=== PATIENT | female | born 1970 | race American Indian/Alaskan Native ===

== ENCOUNTER 2017-05-13 13:56 | Outpatient (CLI) | payer OTHER ==
--- NOTE | 2017-05-13 15:51 | Mammography Report ---
BILATERAL DIGITAL SCREENING MAMMOGRAM with CAD: 05/13/17 13:56:00 CLINICAL: Routine screening. COMPARISON:05/30/16 right mammogram. FINDINGS: The breasts are heterogeneously dense, which may obscure small masses. No mass, architectural distortion or suspicious calcifications. IMPRESSION: No mammographic evidence of malignancy. BI-RADS CATEGORY: 1 - - Negative RECOMMENDATION: Routine mammographic screening in one year. COMMENT: Patient follow-up letters are generated by our [employer] application.
--- NOTE | 2017-05-13 15:53 | Ultrasound Report ---
ULTRASOUND RIGHT AXILLA: 05/13/17 13:56:00 CLINICAL: Right axillary mass. COMPARISON: None. FINDINGS: Ultrasound of the right axilla demonstrated normal fat with no distinct measurable mass.Several lymph nodes with benign morphology. No lymphadenopathy. IMPRESSION: Benign fat of the right axilla. Recommend clinical followup.
== END 2017-05-13 13:57 | disposition home or self-care (01) ==
LOC: SPVWC 13:56
PROVIDERS: ATTEND Obstetrics & Gynecology
DX: Z12.31 Encounter for screening mammogram for malignant neoplasm of breast (principal); Q83.1 Accessory breast
CPT/HCPCS: 76642; G0202; 77067

== ENCOUNTER 2017-12-17 06:06 | Observation (INO) | payer OTHER ==
--- NOTE | 2017-12-12 10:50 | Anesthesia Consultation ---
Anesthesia Consult and Med Hx Date of service: 12/12/17 - Airway Anesthetic Teeth Evaluation: Good ROM Head & Neck: Adequate Mental/Hyoid Distance: Adequate Mallampati Class: Class I Intubation Access Assessment: Good - Pulmonary Exam CTA: Yes - Cardiac Exam Cardiac Exam: RRR - Pre-Operative Health Status ASA Pre-Surgery Classification: ASA1 Proposed Anesthetic Plan: General Nerve Block: TAP - Central Nervous System Hx Psychiatric Problems: No - Hematic Hx Sickle Cell Disease: Yes (Trait only) - Other Systems Hx Cancer: No
[2017-12-12 10:58] LABS: Basophils % (Auto) 0.5 % (0.0-1.8); Eosinophils # (Auto) 0.1 K/mm3 (0.0-0.4); Eosinophils % (Auto) 1.4 % (0.0-4.3); Hematocrit 37.6 % (30.3-42.9); Hemoglobin 12.4 gm/dl (10.1-14.3); Lymphocytes # (Auto) 2.9 K/mm3 (1.2-5.4); Mean Corpuscular HGB Conc 33 % (30-34); Mean Corpuscular Volume 76 fl (79-97); Monocytes # (Auto) 0.6 K/mm3 (0.0-0.8); Monocytes % (Auto) 7.8 % (0.0-7.3); Platelet Count 269 K/mm3 (140-440); Red Blood Count 4.97 M/mm3 (3.65-5.03); Red Cell Distribution Width 14.9 % (13.2-15.2)
[2017-12-12 11:09] LABS: Mean Corpuscular Hemoglobin 25 pg (28-32)
--- NOTE | 2017-12-16 17:45 | History and Physical Report ---
History of Present Illness Date of examination: 12/12/17 Chief complaint: Excessive and frequent menstruation with irregular cycle; Fibroids of uterus; Intramura History of present illness: Past History : 2 Term Births: 2 Living Children: 2 Para: 2 # 1 Delivery type: # 2 Delivery type: APPLICATIONS DEVELOPMENT ANALYST History Operations: Laproscopic Dx for endometriosis Tonsillectomy Laparoscopic salpingectomy (07/22/2012)(B) Laparoscopic/Laparotomy Lysis of adhesions (07/22/2012) Laparoscopy, ovarian biopsy right (07/22/2012) Abnormal PAP: positive Uterine Anomaly: positive fibroids Infection History HIV Risk Eval: no TB exposure: no Personal hx. of genital herpes: yes Partner hx. of genital herpes: no Rash/viral illness since LMP: no Hx of STD: HSV Other: HSV no treatment given per pt Wants retest Active Medications (reviewed today): IBUPROFEN 800 MG ORAL TABLET (IBUPROFEN) 1 po TID (PRN) OXYCODONE-ACETAMINOPHEN 5-325 MG ORAL TABLET (OXYCODONE-ACETAMINOPHEN) 1-2po q6h FLONASE 50 MCG/ACT NASAL SUSPENSION (FLUTICASONE PROPIONATE) 2 sprays, each nostril x1 qd OMEPRAZOLE TABLET DELAYED RELEASE (OMEPRAZOLE TBEC) MEGARED OMEGA-3 KRILL OIL CAPSULE (KRILL OIL CAPS) VITAMIN D 1000 UNIT ORAL TABLET (CHOLECALCIFEROL) Current Allergies (reviewed today): SULFA (Critical) Past Medical History: Reviewed history from 04/29/2017 and no changes required: Hyperlipidemia--no meds at present, OTC Fish oil GERD endometrisosis colon polyp 2014 benign historyof abnml EKG's cardiac evaluations are normal Past Surgical History: Reviewed history from 06/10/2017 and no changes required: Laproscopic Dx for endometriosis Tonsillectomy Laparoscopic salpingectomy (07/22/2012)(B) Laparoscopic/Laparotomy Lysis of adhesions (07/22/2012) Laparoscopy, ovarian biopsy right (07/22/2012) Family History Summary: Reviewed history Last on 04/18/2015 and no changes required:12/16/2017 Other family member - Has No Family History of Biliary Tract Cancer - Entered On : 05/17/2017 Other family member - Has No Family History of Breast Cancer - Entered On: 2016 Other family member - Has No Family History of Brain Cancer - Entered On: 2016 Other family member - Has No Family History of Colon Cancer - Entered On: 2016 Other family member - Has No Family History of DVT/PE on OCP - Entered On: 2016 Other family member - Has No Family History of Kidney/Urinary Tract Cancer - Entered On: 05/17/2017 Other family member - Has No Family History of Ovarvian Cancer - Entered On: Other family member - Has No Family History of Pancreatic Cancer - Entered On: Other family member - Has No Family History of Stomach Cancer - Entered On: 05/17 Other family member - Has No Family History of Small Bowel Cancer - Entered On: 05/17/2017 Other family member - Has No Family History of Uterine Cancer - Entered On: 05/17 General Comments - FH: No Family History of Breast Cancer No Family History of Colon Cancer No Family History of Ovarvian Cancer No Family History of DVT/PE on OCP Social History: Reviewed history from 04/29/2017 and no changes required: Patient is still . sex is comfortable Smoking History: Patient has never smoked. Risk Factors: Mammogram History: Date of Last Mammogram: 05/13/2017 PAP Smear History: Date of Last PAP Smear: 04/29/2017 Previous Tobacco Use: Signed On 06/12/2017 Smoked Tobacco Use: Never smoker Smokeless Tobacco Use: Never Passive smoke exposure: no Drug use: no HIV high-risk behavior: no Caffeine use: 0 drinks per day Previous Alcohol Use: Signed On - 06/12/2017 Alcohol use: no Exercise: no Seatbelt use: 100 % Colonoscopy History: Date of Last Colonoscopy: 02/15/2015 Mammogram History: Date of Last Mammogram: 05/13/2017 PAP Smear History: Date of Last PAP Smear: 04/29/2017 Review of Systems General Denies fever, chills, sweats, anorexia, fatigue, weakness, malaise, weight loss and sleep disorder. Complains of menorrhagia and abnormal vaginal bleeding. Denies vaginal discharge, incontinence, dysuria, hematuria, urinary frequency, amenorrhea, pelvic pain, genital sores, decreased libido, painful periods, painful sex, urinary urgency, hot flashes, vaginal dryness, vaginal itching and vaginal odor. CV Denies chest pains, palpitations, syncope, dyspnea on exertion, orthopnea, PND and peripheral edema. Resp Denies cough, dyspnea at rest, excessive sputum, hemoptysis, wheezing and pleurisy. GI Denies nausea, vomiting, diarrhea, constipation, change in bowel habits, abdominal pain, melena, hematochezia, jaundice, gas/bloating, indigestion/ heartburn, dysphagia and odynophagia. Endo Denies cold intolerance, heat intolerance, polydipsia, polyphagia, polyuria and unusual weight change. Breast Denies left breast lump, right breast lump, nipple discharge, bloody discharge from nipple, breast pain, abnormal mammogram and breast enlargement. MS Denies back pain, joint pain, joint swelling, muscle cramps, muscle weakness, stiffness, arthritis, sciatica, restless legs, leg pain at night and leg pain with exertion. Derm Denies rash, itching, dryness and suspicious lesions. Neuro Denies paralysis, paresthesias, headache, seizures, tremors, vertigo, transient blindness, frequent falls, frequent headaches and difficulty walking. Psych Denies depression, anxiety, irritability and mood swings. Eyes Denies blurring, diplopia, irritation, discharge, vision loss, eye pain and photophobia. ENT Denies earache, ear discharge, tinnitus, decreased hearing, nasal congestion, nosebleeds, sore throat and hoarseness. Allergy Denies urticaria, allergic rash, hay fever and recurrent infections. Heme Denies abnormal bruising, bleeding and enlarged lymph nodes. Physical Exam Appearance: well developed, well nourished, no acute distress Other Exams Lungs: no rales, rhonchi, or wheezes Heart: S1, S2, no murmur, rub, or gallop Abdomen: soft, non-tender, no masses, Genitourinary Exam Vulva: normal, no lesions or discharge Urethral meatus: normal size and location, no lesions or discharge Urethra: no discharge Vagina: no abnormalities Cervix: no abnormalities seen Uterus: fixed Adnexa: no masses or tenderness Impression & Recommendations: Problem # 1: Excessive and frequent menstruation with irregular cycle (ICD- 626.6) (EKO25-L71.1) Probably due to Mirena. Diagnosis explained to patient . Questions answered. Discussed with patient various medical and surgical therapies common for treatment: Hormonal/medical therapy,endometrial ablation or hysterectomy. She desires to proceed with hysterectomy Her updated medication list for this problem includes: Ibuprofen 800 Mg Oral Tablet (Ibuprofen) ..... 1 po tid (prn) Vitamin D 1000 Unit Oral Tablet (Cholecalciferol) [id number] Consent reviewed and signed . Possible laparoscopy or laparotomy explained to patient. The risks and alternatives for this surgery were reviewed with the patient. She was informed of possible bleeding, infection, injury to bowel, bladder, ureters or other adjacent organs. She was informed she will not be able to get once her uterus has been removed. She desires ovarian conservation. She was informed she may require surgery later to have her ovaries removed for a benign or mailgnant condition The patient was instructed/informed the following: The normal length of hospital stay for this procedure. Nothing to eat or drink after midnight the evening prior to surgery. Clear liquids the day before surgery. Fleets enema the day prior to surgery. Pre-op instruction sheets given. Wound care instructions given. Infection precautions reviewed, patient to call for any signs or symptoms of infection. The usual discomforts associated with this procedure were detailed. Proper use of pain medicines was reviewed. Patient was given ample opportunity to have all her questions answered before signing informed consent. H&P dictated. Problem # 2: Fibroids of uterus; Intramural (ICD-218.1) ([id number]-Q89.1) Diagnosis explained to patient . Questions answered. Discussed with patient various medical, surgical and radioloigal therapies common for treatment: Hormonal/medical therapy, fibroid embolization, removal of fibroids or hysterectomy Her updated medication list for this problem includes: Ibuprofen 800 Mg Oral Tablet (Ibuprofen) ..... 1 po tid (prn) Oxycodone-acetaminophen 5-325 Mg Oral Tablet (Oxycodone-acetaminophen) ..... 1-2po q6h [place]-3 Krill Oil Capsule (Krill oil caps) Orders: [facility] Est [id number] ([id number]) Medications Added to Medication List This Visit: 1) Ibuprofen 800 Mg Oral Tablet (Ibuprofen) .... 1 po tid (prn) 2) Oxycodone-acetaminophen 5-325 Mg Oral Tablet (Oxycodone-acetaminophen) .... 1-2po q6h 3) Flonase 50 Mcg/act Nasal Suspension (Fluticasone propionate) .... 2 sprays, each nostril x1 qd Patient Instructions: 1) Discontinue ibuprofen and herbal supplements immediately Prescriptions: OXYCODONE-ACETAMINOPHEN 5-325 MG ORAL TABLET (OXYCODONE-ACETAMINOPHEN) 1-2po q6h #30 Tablet x 0 Entered and Authorized by: Dulce Chery MD Method used: Print then Give to Patient RxID: [id number] IBUPROFEN 800 MG ORAL TABLET (IBUPROFEN) 1 po TID (PRN) #30 x 1 Entered and Authorized by: Dulce Chery MD Method used: Print then Give to Patient RxID: [id number] IBUPROFEN 800 MG ORAL TABLET (IBUPROFEN) 1 po TID (PRN) #30 x 1 Entered and Authorized by: Dulce Chery MD Method used: Print then Give to Patient RxID: [id number] OXYCODONE-ACETAMINOPHEN 5-325 MG ORAL TABLET (OXYCODONE-ACETAMINOPHEN) 1-2po q6h #30 Tablet x 0 Entered and Authorized by: Dulce Chery MD Method used: Print then Give to Patient RxID: [id number] Medications and Allergies Allergies Allergy/AdvReac Type Severity Reaction Status Date / Time Sulfa (Sulfonamide Allergy Itching Verified 12/09/17 15:23 Antibiotics) Home Medications Medication Instructions Recorded Confirmed Last Taken Type Acetaminophen [Tylenol Extra 500 mg PO PRN PRN 12/09/17 12/09/17 Unknown History Strength] Multivitamin [Multiple Vitamins] 1 each PO DAILY 12/09/17 12/09/17 Unknown History Active Meds: Active Medications Lactated Ringer's (Lactated Ringers) 1,000 mls @ 100 mls/hr IV DIRECT VIJAYA Cefazolin Sodium (Ancef/Sterile Water 2 Gm/20 Ml) 2 gm in 20 mls @ 80 mls/hr IV PREOP NR PRN Reason: Protocol Exam Vital Signs Temp Pulse Resp BP 98.1 F 68 16 128/80 12/12/17 10:20 12/12/17 10:20 12/12/17 10:20 12/12/17 10:20 Results - Labs 12/12/17 10:30 Assessment and Plan - Patient Problems (1) Excessive and frequent menstruation with irregular cycle Status: Acute (2) Fibroid Status: Acute Qualifiers: Uterine leiomyoma location: unspecified location Qualified Code(s): D25.9 - Leiomyoma of uterus, unspecified
[~2017-12-17 06:06] MED LIST: ANCEF/STERILE WATER 2 GM/20 ML 2 GM/20 ML SYRINGE IV NR; LACTATED RINGERS 1,000 ML IV SCH; VERSED IV NR
[2017-12-17] MEDS ORDERED: NACL BACTERIOSTATIC INFILTRATI ONE (06:33)
[2017-12-17] MEDS ORDERED: NEOSPORIN GU IR ONE ×2 (07:31→09:21)
--- NOTE | 2017-12-17 07:32 | Anesthesia Day of Surgery ---
Anesthesia Day of Surgery - Day of Surgery Patient Examined: Yes Patient H&P Reviewed: Yes Patient is NPO: Yes
[2017-12-17] MEDS ORDERED: MARCAINE 0.25% INFILTRATI ONE (07:33)
[2017-12-17] MEDS ORDERED: DECADRON ONE ×2 (07:33→09:28)
[2017-12-17] MEDS ORDERED: CLONIDINE 1,000 MCG/10 ML VIAL EP ONE (07:33)
[2017-12-17] MEDS ORDERED: XYLOCAINE 1% 20 mL ONE (07:33)
[2017-12-17] MEDS ORDERED: DILAUDID ONE (07:36)
[2017-12-17] MEDS ORDERED: ZEMURON IV ONE (07:36)
[2017-12-17] MEDS ORDERED: XYLOCAINE MPF 2% ONE (07:36)
[2017-12-17] MEDS ORDERED: DIPRIVAN 10 MG/ML IV ONE (07:36)
[2017-12-17] MEDS ORDERED: NEURONTIN PO NR (08:00)
[2017-12-17] MEDS ORDERED: SUBLIMAZE IV NR (08:00)
[2017-12-17] MEDS ORDERED: VERSED IV NR (08:00)
[2017-12-17] MEDS ORDERED: PEPCID PO NR (08:00)
[2017-12-17] MEDS ORDERED: ZOFRAN IV PRN ×2 (08:26→18:38)
[2017-12-17] MEDS ORDERED: NACL 0.9% IR ONE (09:21)
[2017-12-17] MEDS ORDERED: NEO SYNEPHRINE/NS Syringe(OR USE) IV ONE (09:26)
[2017-12-17] MEDS ORDERED: ZOFRAN ONE (09:28)
[2017-12-17] MEDS ORDERED: METHYLENE BLUE ONE (09:41)
[2017-12-17] MEDS ORDERED: LACTATED RINGERS 1,000 ML ONE (09:51)
[2017-12-17] MEDS ORDERED: METHYLENE BLUE IV ONE (10:00)
[2017-12-17] MEDS ORDERED: TORADOL ONE (10:35)
[2017-12-17] MEDS ORDERED: ROBINUL ONE (10:36)
[2017-12-17] MEDS ORDERED: NEOSTIGMINE ONE (10:36)
[2017-12-17] MEDS: DILAUDID IV PRN ×3 (11:25→11:50)
[2017-12-17] MEDS ORDERED: REGLAN PO PRN (12:55)
[2017-12-17] MEDS ORDERED: NACL 0.9% 1000 ML 1,000 ML IV SCH (12:55)
[2017-12-17] MEDS ORDERED: PERCOCET 5/325 PO PRN (12:55)
[2017-12-17] MEDS ORDERED: ANCEF/NS 1 GM/50 ML 1 GM/50 ML BAG IV SCH ×2 (12:55→16:30)
[2017-12-17] MEDS ORDERED: MORPHINE IV PRN ×2 (12:55→13:30)
[2017-12-17] MEDS ORDERED: TYLENOL PR PRN (13:00)
[2017-12-17] MEDS ORDERED: TYLENOL PO PRN (13:00)
--- NOTE | 2017-12-17 13:24 | Operative Report ---
Operative Report Operative Report: Date: 12/17/2017 Preoperative diagnosis: 1. Excessive and frequent menstruation with irregular cycle 2. Fibroids of uterus; Intramural Postoperative diagnosis: 1. Excessive and frequent menstruation with irregular cycle 2. Fibroids of uterus; Intramural 3. Pelvic adhesions 4. Right adnexal cyst Procedure: 1. Robotic-assisted laparoscopic total hysterectomy 2. Removal of Mirena IUD 3. Lysis of pelvic adhesions 4. Excision of right adnexal cyst Surgeon: Dulce Chery MD Electronic Scale Assembler And Tester: Melisa Powell M.D. Anesthesiologist: Beryn Valles M.D. Anesthesia: General endotracheal anesthesia EBL: Approximately 50 mL Findings: Exam under anesthesia revealed the uterus to be approximately 14 weeks and fixed. Uterus was sounded to approximately 11 cm. Uterine fibroids. Filmy posterior uterine adhesions to the sigmoid colon. Right adnexal cysts with brownish fluid consistent with endometriosis. Adhesion of the left ovary to the pelvic sidewall and posterior uterus. The patient had a previous salpingectomy therefore no tubes were present for removal. Procedure: Patient was taken to the OR and placed in the supine position. General anesthesia was induced and an oral gastric tube was placed. Her neck and head were placed on foam support. Foam eye protection with goggles were secured in place. Then foam face protection was placed and secured. Foam shoulder pads were then positioned on her shoulders for Trendelenburg positioning. She was then placed in dorsolithotomy position. Exam under anesthesia see above. The abdomen and vagina were then prepped and draped in the usual sterile fashion. Timeout was performed. A Davis catheter was inserted into the bladder with drainage of clear yellow urine. The operative speculum was introduced into the vagina and the anterior lip of the cervix was grasped with single-toothed tenaculum. The uterus was sounded to 11 cm. The cervix was progressively dilated to allow the large V care uterine manipulator. The bulb of the manipulator was inflated and the speculum and tenaculum were removed. The cup of the manipulator was placed around the cervix and the blue occluder of the manipulator was properly positioned in the vagina. A laparotomy sponge that was saturated with a solution of polymyxin and saline was placed in the vagina to ensure pneumoperitoneum. Sterile gloves were placed and attention was turned to the abdomen. A 10 mm vertical supraumbilical incision was made approximately 10 cm superior to the elevated fundus of the uterus. A 12 mm trocar with the laparoscope and camera attached was introduced through this incision under direct visualization. The abdomen was insufflated. No obvious bowel, bladder, ureteral, or major vascular injury was noted. The patient was then placed in steep Trendelenburg position and the following trochars were placed under direct visualization: 8 mm robotic trochars were placed through incisions made in the bilateral midclavicular lower abdominal region approximately 10 cm lateral and approximately 2 cm below the midline incision, and a 5 mm trocar was placed through an incision made in the right lower lateral pelvis approximately 2 cm superior to the iliac crest. The 10 mm laparoscope was then replaced by a 5 mm laparoscope that was placed through the 5 millimeter lateral trocar. The 12 mm trocar was then removed in the Richard Nina fascial closure device was placed through the incision and a 0 Vicryl was placed through the fascia. Once the suture was secured the 12 mm trocar was reintroduced. Once the trochars were in the appropriate positions, the [place] robot system was engaged. The EndoShears and bipolar device was placed through the 8 mm trochars and positioned then attention was turned to the console. The uterus was elevated and bilateral salpingectomy was performed. Then the right utero-ovarian ligament was clamped. cauterized and incised bilaterally using 30 W of energy. The adnexal cyst was noted anterior to the right ovary. Cyst was excised and removed through the 5 mm trocar. Then the right round ligament was clamped, cauterized and incised bilaterally. The anterior leaf of the broad ligament was elevated and careful blunt and sharp dissection the bladder flap was created and dissected away from the lower uterine segment and cervix. The posterior leaf of the broad ligament was dissected away from the uterine vessels. Then attention was turned to the left adnexa. Due to the scarring of the uterus to the pelvic sidewall as well as to the posterior aspect of the uterus the round ligament was clamped cauterized and sized. Then anteriorly the broad ligament was elevated and with both blunt and sharp dissection the bladder flap was completed. Then attention was turned to the posterior aspect of the uterus on the left wall with careful blunt and sharp dissection the ovary was released from the uterus. The ovary was attached down through the broad ligament to the uterine vessels. With careful dissection the ovary was released from the uterine vessels and the vessels were clamped and cauterized. The cup of the uterine manipulator was palpated both anteriorly and posteriorly. Course of the right ureter was visualized and was confirmed to be away from the operative field. The left ureter was unable to be visualized due to the attachment of the ovary to the pelvic sidewall. The uterine vessels were then clamped and cauterized bilaterally. Blanching of the uterus was then noted. Attention was again turned to the anterior lower uterine segment and the bladder was confirmed to be away from the operative field. Then attention was turned again to the posterior where the cup of the manipulator was palpated and a colpotomy was performed down to the cup. The incision was extended in the lateral position the uterine vessels that were again clamped and cauterized and incised. Continuing along the cup of the manipulator in a circumferential manner the colpotomy was completed. The uterus and cervix were then removed through the vaginal incision. The pelvis was irrigated with warm normal saline. A moist laparotomy sponge was placed in the vagina to maintain pneumoperitoneum. The vagina cuff was reapproximated using V LOC 180 suture in a simple running stitch. Then a J stitch was performed to secure the suture. Again the pelvis was copiously irrigated with polymixin in warm normal saline. The laparotomy sponge was removed from the vagina. No bowel, bladder, ureteral or major vascular injury was noted. The gas was released from the abdomen under direct visualization to ensure hemostasis. No bleeding was noted. Because the left ureter was unable to be visualized patient was given Methergine IV to ensure no ureteral injury. At the end of the procedure there was no drainage of dye into the abdominal cavity however there was drainage into the Davis catheter and no blood was noted in the Davis catheter or Davis bag. Once hemostasis was noted, Garfield was applied to the operative field to ensure hemostasis. Then Interceed was applied to the operative field to decrease formation of adhesions. Again hemostasis was noted. Grossly normal appendix was noted. Then the instruments were removed, the robot was disengaged. The 12 mm trocar was removed and the fascia was ligated with the 0 Vicryl suture that was placed at the beginning of the procedure. The patient was taken out of Trendelenburg position, the abdomen was desufflated, the remaining trochars were removed. Incisions were reapproximated using 4-0 Vicryl in a subcuticular manner. Incisions were infused with half percent Marcaine without epinephrine and Surgiseal was placed over the incisions. The vagina was then inspected, no bleeding was noted and clear yellow urine was draining into the Davis bag from the bladder at the end of the procedure. Patient was taken to recovery room in stable condition.
[2017-12-17] MEDS ORDERED: REGLAN IV PRN (13:30)
--- NOTE | 2017-12-17 13:53 | Post Anesthesia Evaluation ---
- Post Anesthesia Evaluation Patient Participated: Yes Airway Patent: Yes Stable Respiratory Function: Yes Nausea/Vomiting: No Temp > 96.8F: Yes Pain Manageable: Yes Adequeate Hydration: Yes Anesthesia Complications: No Block Receding Appropriately: Not Applicable Patient on Ventilator: No
[2017-12-17] MEDS: ceFAZolin 1 GM in NACL 0.9% 20 ML IV SCH (17:00)
[2017-12-17] MEDS: TORADOL IV SCH (17:10)
[2017-12-17] MEDS ORDERED: ZOFRAN IM ONE (17:37)
[2017-12-17] MEDS ORDERED: ZOFRAN IV ONE ×2 (17:40→18:40)
--- NOTE | 2017-12-17 20:16 | Progress Note ---
Assessment and Plan - Patient Problems (1) History of robot-assisted laparoscopic hysterectomy Current Visit: Yes Status: Acute Plan to address problem: Operative findings and procedure reviewed, questions answered, plan of care explained, she voiced understanding and agrees with the plan of care (2) Excessive and frequent menstruation with irregular cycle Current Visit: Yes Status: Acute (3) Fibroid Current Visit: Yes Status: Acute Qualifiers: Uterine leiomyoma location: unspecified location Qualified Code(s): D25.9 - Leiomyoma of uterus, unspecified Subjective - Subjective Date of service: 12/17/17 Principal diagnosis: FLORES, COCO Interval history: Resting in bed, feels better now that her macias is draining appropriately Patient reports: appetite normal, pain well controlled Objective - Vital Signs Latest vital signs: Vital Signs Temp Pulse Pulse Resp BP BP Pulse Ox 12/17/17 16:50 98.6 F 78 18 117/72 98 12/17/17 15:20 20 12/17/17 12:40 97.6 F 76 16 113/72 98 12/17/17 12:35 97.6 F 76 76 16 113/72 98 12/17/17 12:20 14 12/17/17 12:15 13 104/68 99 12/17/17 12:06 13 12/17/17 12:00 97.0 F L 73 14 101/61 99 12/17/17 11:50 13 12/17/17 11:45 77 12 106/70 100 12/17/17 11:36 15 12/17/17 11:30 75 15 108/66 100 12/17/17 11:25 13 12/17/17 11:15 77 15 101/63 100 12/17/17 11:05 96 H 11 L 95/56 99 12/17/17 11:00 81 17 92/54 99 12/17/17 10:57 97.4 F L 85 13 93/51 99 12/17/17 07:57 99 H 14 131/78 100 12/17/17 07:42 93 H 20 141/87 100 12/17/17 07:16 98.2 F 82 18 138/85 100 12/17/17 07:15 98.2 F 82 18 138/85 100 Intake and Output 12/17/17 12/17/17 12/17/17 06:59 14:59 22:59 Intake Total 100 1100 Output Total 510 Balance 100 590 Intake: IV 100 1100 Output: Urine 510 Other: Voiding Method Indwelling Catheter - Exam Breasts: Present: deferred Cardiovascular: Present: Regular rate Lungs: Present: Clear to auscultation, Normal air movement Abdomen: Present: normal appearance, soft, normal bowel sounds. Absent: distention, tenderness Extremities: Present: normal. Absent: tenderness
[2017-12-18] MEDS: TORADOL IV SCH ×2 (00:02→05:11)
[2017-12-18] MEDS: ceFAZolin 1 GM in NACL 0.9% 20 ML IV SCH (00:03)
[2017-12-18 07:52] LABS: Hematocrit 33.1 % (30.3-42.9); Hemoglobin 10.7 gm/dl (10.1-14.3)
--- NOTE | 2017-12-18 09:23 | Discharge Summary ---
Providers - Providers Date of Admission: 12/17/17 11:25 Date of discharge: 12/18/17 Attending physician: KAT HORTA Primary care physician: VERA MIDDLETON Hospitalization Condition: Good Procedures: [facility] Hospital course: uncomplicated Disposition: DC-01 TO HOME OR SELFCARE - Discharge Diagnoses (1) History of robot-assisted laparoscopic hysterectomy Status: Acute (2) Excessive and frequent menstruation with irregular cycle Status: Resolved (3) Fibroid Status: Resolved Qualifiers: Uterine leiomyoma location: unspecified location Qualified Code(s): D25.9 - Leiomyoma of uterus, unspecified Core Measure Documentation - Palliative Care Palliative Care/ Comfort Measures: Not Applicable - Core Measures Any of the following diagnoses?: none Exam - Constitutional Vitals: Temp Pulse Resp BP Pulse Ox 98.2 F 82 20 114/67 98 12/18/17 08:35 12/18/17 08:35 12/18/17 08:35 12/18/17 08:35 12/18/17 08:35 General appearance: Present: no acute distress (Desires discharge home, no complaints) - Respiratory Respiratory effort: normal Respiratory: negative: CTA - Cardiovascular Rhythm: regular - Extremities Extremities: no ischemia, No edema - Abdominal General gastrointestinal: Present: soft, non-tender, non-distended, normal bowel sounds - Integumentary Integumentary: Present: clear, warm, dry (Incisions c/d/i, no s/s infection) - Musculoskeletal Musculoskeletal: strength equal bilaterally - Psychiatric Psychiatric: appropriate mood/affect, intact judgment & insight - Neurologic Neurologic: moves all extremities Plan Activity: other (No sex, ambulate in your property ~1mile a day. Void frequently ) Weight Bearing Status: Non-Weight Bearing Diet: regular (Eat small meals frequently, avoid spicy, fatty and high salt foods. Drink ~75oz water a day) Wound: open to air, keep clean and dry Special Instructions: no heavy lifting Follow up with: KAT HORTA MD [Staff Physician] - (as scheduled)
[2017-12-18 14:02] VITALS: BP 137/73
== END 2017-12-18 12:45 | disposition home or self-care (01) ==
LOC: OR 06:06 → OB 11:25
PROVIDERS: ADMIT Obstetrics & Gynecology; ATTEND Obstetrics & Gynecology
DX: N92.1 Excessive and frequent menstruation with irregular cycle (principal); D25.1 Intramural leiomyoma of uterus; N73.6 Female pelvic peritoneal adhesions (postinfective); N83.291 Other ovarian cyst, right side; E78.5 Hyperlipidemia, unspecified; K21.9 Gastro-esophageal reflux disease without esophagitis
CPT/HCPCS: 36415; 58301; 58571; 64450; 81025; 85014; 85018; 85025; 86850; 86900; 86901; 88300; 88305; 88307; 96374; 96375; 96376; A4217; C1765; G0378; J0690; J0735; J1100; J1170; J1885; J2250; J2270; J2370; J2405; J2704; J2710; J3010; J7030; J7120; Q9968; 88302; 88304

== ENCOUNTER 2018-02-07 08:07 | Outpatient (CLI) | payer OTHER ==
--- NOTE | 2018-02-07 10:58 | Cat Scan Report ---
CT ABDOMEN WITH CONTRAST: 02/07/18 CLINICAL: Abdominal pain. COMPARISON: None. TECHNIQUE: Volumetric acquisition and 1.25 millimeter scan reconstructions after the uneventful intravenous injection of 100 cc Omnipaque 300. Consent was obtained prior to the administration of contrast. Oral contrast was also given. Scans were obtained from the level of the diaphragm through the kidneys and did not include the pelvis since a CT Pelvis was not ordered. FINDINGS: Abdomen: The lung bases are clear. Normal liver, bile ducts and gallbladder. Focal wall thickening of the anterior and left lateral gastric fundus. The focal wall thickening involves at least a 5 cm long portion of the gastric wall. The wall is hypodense and measures 18 mm in thickness. No gastric ulcer is identified.. Circumferential wall thickening of the duodenal bulb with no ulcer identified. The rest of the duodenum is normal. Normal pancreas and spleen. The adrenal glands and kidneys are normal. The renal collecting systems and ureters are nondilated. Imaged portions of small bowel are normal.The colon is normal except for a few scattered diverticula. No signs of diverticulitis.Scans do not extend inferior enough to include an appendix. No ascites, mass or lymphadenopathy. Mild calcification of the abdominal aorta and iliac arteries. The inferior vena cava is normal. Bone windows demonstrate no bone lesion. IMPRESSION:1. Focal gastric wall thickening with a differential including peptic ulcer disease and tumor. 2. Duodenal bulb wall thickening is more likely related to peptic ulcer disease. 3. Mild diverticulosis but no diverticulitis. 4. Consider CT Pelvis if clinically indicated.
== END 2018-02-07 08:08 | disposition home or self-care (01) ==
LOC: SPVIMAG 08:07
PROVIDERS: ATTEND Obstetrics & Gynecology
DX: K57.90 Diverticulosis of intestine, part unspecified, without perforation or abscess without bleeding (principal); I70.0 Atherosclerosis of aorta
CPT/HCPCS: 74160; Q9967

== ENCOUNTER 2018-02-18 08:04 | Outpatient (CLI) | payer OTHER | END 2018-02-18 08:05 | disposition home or self-care (01) | LOC: WOUND 08:04 | PROVIDERS: ATTEND Surgery | DX: S31.102A Unspecified open wound of abdominal wall, epigastric region without penetration into peritoneal cavity, initial encounter (principal); D25.9 Leiomyoma of uterus, unspecified; Z90.710 Acquired absence of both cervix and uterus; X58.XXXA Exposure to other specified factors, initial encounter; Y93.89 Activity, other specified; Y92.89 Other specified places as the place of occurrence of the external cause; Y99.8 Other external cause status | CPT/HCPCS: 99214; G0463 ==

== ENCOUNTER 2018-06-06 13:44 | Outpatient (CLI) | payer OTHER ==
--- NOTE | 2018-06-09 10:41 | Mammography Report ---
BILATERAL DIGITAL SCREENING MAMMOGRAM with CAD and DIGITAL BREAST TOMOSYNTHESIS (DBT) : 06/06/18 CLINICAL: Routine screening. COMPARISON:05/13/17 FINDINGS: The breasts are heterogeneously dense, which may obscure small masses. No mass, architectural distortion or suspicious calcifications. IMPRESSION: No mammographic evidence of malignancy. BI-RADS CATEGORY: 1 - - Negative RECOMMENDATION: Routine mammographic screening in one year. COMMENT: Patient follow-up letters are generated by our [email or web address] application.
== END 2018-06-06 13:45 | disposition home or self-care (01) ==
LOC: SPVWC 13:44
PROVIDERS: ATTEND Obstetrics & Gynecology
DX: Z12.31 Encounter for screening mammogram for malignant neoplasm of breast (principal); K21.9 Gastro-esophageal reflux disease without esophagitis; Z88.1 Allergy status to other antibiotic agents; Z90.89 Acquired absence of other organs
CPT/HCPCS: 77063; 77067

== ENCOUNTER 2019-06-08 08:05 | Outpatient (CLI) | payer OTHER ==
--- NOTE | 2019-06-08 17:13 | Mammography Report ---
DIGITAL SCREENING MAMMOGRAM WITH TOMOSYNTHESIS WITH CAD, 06/08/2019 INDICATION: Screening. TECHNIQUE: Digital bilateral 2D and 3D mammography with tomosynthesis was obtained in the craniocaud al and mediolateral oblique projections. Computer-Aided Detection (CAD) analysis was used for interp retation of this study. COMPARISON: 05/13/2017 FINDINGS: Breast Density: The breasts are heterogeneously dense, which may obscure small masses. There is no evidence of dominant mass, suspicious calcifications or architectural distortion in eithe r breast. Stable benign nodule is noted in the superior left breast. No interval change. IMPRESSION: No evidence of malignancy. BI-RADS Category 2: Benign. No mammographic evidence of malignancy. Recommend routine screening ma mmography in one year. A "normal" or negative report should not discourage follow up or biopsy of a clinically significant f inding. A written summary of these findings will be mailed to the patient. The patient will be entered into a mammography reporting system which will generate a reminder letter for the patient's next appointmen t at the appropriate interval. The [employer] recommends yearly mammograms starting at age 40 and continuing as l marcelino as a woman is in good health. Breast MRI is recommended for women with an approximate 20-25% or greater lifetime risk of breast cancer, including women with a strong family history of breast or ova sangita cancer or who have been treated for Hodgkin's disease. Signer Name: Lorraine Buenrostro MD Signed: 06/08/2019 5:09 PM Workstation Name: [id number]
== END 2019-06-08 08:06 | disposition home or self-care (01) ==
LOC: SPVWC 08:05
PROVIDERS: ATTEND Obstetrics & Gynecology
DX: Z12.31 Encounter for screening mammogram for malignant neoplasm of breast (principal); K21.9 Gastro-esophageal reflux disease without esophagitis; Z90.89 Acquired absence of other organs
CPT/HCPCS: 77063; 77067

== ENCOUNTER 2020-01-26 05:50 | Day surgery (SDC) | payer OTHER ==
--- NOTE | 2020-01-25 17:20 | History and Physical Report ---
History of Present Illness Date of examination: 01/21/20 Chief complaint: Pelvic pain and enlarging pelvic/ovarian mass History of present illness: Past History : 2 Term Births: 2 Living Children: 2 Para: 2 # 1 Delivery date: 1998 Delivery type: # 2 Delivery type: BENDER MACHINE History Operations: Laproscopic Dx for endometriosis Tonsillectomy Laparoscopic salpingectomy (07/22/2012)(B) Laparoscopic/Laparotomy Lysis of adhesions (07/22/2012) Laparoscopy, ovarian biopsy right (07/22/2012) Laparoscopic Hysterectomy (12/17/2017) Abnormal PAP: positive Uterine Anomaly: positive fibroids Infection History HIV Risk Eval: no TB exposure: no Personal hx. of genital herpes: yes Partner hx. of genital herpes: no Rash/viral illness since LMP: no Hx of STD: HSV Other: HSV no treatment given per pt Wants retest Active Medications: VALACYCLOVIR HCL 1 GM ORAL TABLET (VALACYCLOVIR HCL) 1 tab po qd x5days DICYCLOMINE HCL TABLET (DICYCLOMINE HCL TABS) ATORVASTATIN CALCIUM TABLET (ATORVASTATIN CALCIUM TABS) FLONASE 50 MCG/ACT NASAL SUSPENSION (FLUTICASONE PROPIONATE) 2 sprays, each nostril x1 qd PANTOPRAZOLE SODIUM 40 MG ORAL TABLET DELAYED RELEASE (PANTOPRAZOLE SODIUM) Current Allergies: SULFA (Critical) Past Medical History: Reviewed history from 09/25/2019 and no changes required: Hyperlipidemia GERD endometrisosis colon polyp (2014)(2019) benign historyof abnml EKG's cardiac evaluations are normal IBS Past Surgical History: Reviewed history from 12/17/2017 and no changes required: Laproscopic Dx for endometriosis Tonsillectomy Laparoscopic salpingectomy (07/22/2012)(B) Laparoscopic/Laparotomy Lysis of adhesions (07/22/2012) Laparoscopy, ovarian biopsy right (07/22/2012) Laparoscopic Hysterectomy (12/17/2017) Family History Summary: Reviewed history Last on 11/09/2019 and no changes required:01/25/2020 Other Family Member - Has No Family History of Uterine Cancer - Entered On: 05/17/2017 Other Family Member - Has No Family History of Small Bowel Cancer - Entered On: 05/17/2017 Other Family Member - Has No Family History of Stomach Cancer - Entered On: 05/17/2017 Other Family Member - Has No Family History of Pancreatic Cancer - Entered On: 05/17/2017 Other Family Member - Has No Family History of Ovarvian Cancer - Entered On: 05/17/2017 Other Family Member - Has No Family History of Kidney/Urinary Tract Cancer - Entered On: 05/17/2017 Other Family Member - Has No Family History of DVT/PE on OCP - Entered On: 05/17/2017 Other Family Member - Has No Family History of Colon Cancer - Entered On: 05/17/2017 Other Family Member - Has No Family History of Brain Cancer - Entered On: 05/17/2017 Other Family Member - Has No Family History of Breast Cancer - Entered On: 05/17/2017 Other Family Member - Has No Family History of Biliary Tract Cancer - Entered On: 05/17/2017 General Comments - FH: No Family History of Breast Cancer No Family History of Colon Cancer No Family History of Ovarvian Cancer No Family History of DVT/PE on OCP Social History: Reviewed history from 04/29/2017 and no changes required: Patient is still . sex is comfortable Smoking History: Patient has never smoked. Previous Tobacco Use: Signed On - 11/09/2019 Smoked Tobacco Use: Never smoker Smokeless Tobacco Use: Never Passive smoke exposure: no Drug use: no HIV high-risk behavior: no Caffeine use: 0 drinks per day Previous Alcohol Use: Signed On - 11/09/2019 Alcohol use: no Exercise: no Seatbelt use: 100 % Colonoscopy History: Date of Last Colonoscopy: 02/15/2015 Mammogram History: Date of Last Mammogram: 06/08/2019 PAP Smear History: Date of Last PAP Smear: 11/09/2019 Physical Exam Appearance: well developed, well nourished, no acute distress Other Exams Lungs: no rales, rhonchi, or wheezes Heart: S1, S2, no murmur, rub, or gallop Genitourinary Exam Adnexa: deferred for EUA Impression & Recommendations: Problem # 1: Ovarian mass (ICD-625.8) (QYZ25-V65.89) Complexed left ovary that's getting larger coupled with pelvic pain. She now desires to proceed the robot assisted laparoscopic Diagnosis explained to patient . Discussed with patient various medical and surgical therapies common for treatment including, but not limited to, analgesia and observation. Discussed risks and benefits of laparotomy, laparoscopy and robotic assisted approaches for oophorectomy.. Patient desires definitive treatment in the form of robot assisted laparoscopic total bilateral oophorectomy. The risks and alternatives for this surgery were reviewed with the patient. She was informed of the risks of the surgery including, but not limited to, pain, infection, bleeding possibly heavy enough to require a blood transfusion with associated risks of infections (hepatitis and HIV) and transfusion reactions, possible damage to bowel, bladder or ureter(s). ndications to abort a robotic/laparoscopic procedure and perform an open procedure were explained. Patient understands once her ovaries are removed she will become menopausal which may increase her mobidity, mortality and risk for cancers. She was informed she may require ERT with its risks blood clots, cancer and other complications. Patient advised the small risks of spreading of malignancy if morcellation is required during the surgery patient understands and approves performing if necessary. Questions answered. Consent reviewed and signed. The patient was instructed/informed the following: The normal length of hospital stay for this procedure. Nothing to eat or drink after midnight the evening prior to surgery. Fleets enema the night prior to surgery. Clear liquids the day before surgery. Pre-op instruction sheets given. Patient voiced understanding and agrees with plan of care Problem # 2: Pelvic and perineal pain (ICD-789.00) (VZE49-H59.2) Risks, benefits, complications, consequences and alternatives for these procedures were discussed with patient, including but not limited to the risks of bleeding, infection, injury to bowel, bladder, ureters or major vascular injury. It was extensively explained to her that her pain may persist, recur or change in nature due to the difficulty with diagnosis chronic pelvic pain or development of adhesions. She declined other treatment options at this time. Questions were encouraged and answered. Consents were reviewed and signed. Pre- op as well as post-op instructions and precautions were given.Patient voiced understanding and desires to proceed with the above procedures Medications and Allergies Allergies Allergy/AdvReac Type Severity Reaction Status Date / Time Sulfa (Sulfonamide Allergy Itching Verified 01/14/20 10:47 Antibiotics) Home Medications Medication Instructions Recorded Confirmed Last Taken Type No Known Home Medications [No 01/14/20 01/14/20 Unknown History Reported Home Medications] Assessment and Plan - Patient Problems (1) Pelvic pain Status: Acute (2) Ovarian mass, left Status: Acute
[2020-01-26] MEDS ORDERED: ceFAZolin/Water 2 GM/20 ML 2 GM/20 ML SYRINGE IV NR (06:00)
[2020-01-26 06:48] LABS: Hematocrit 38.2 % (30.3-42.9); Hemoglobin 12.6 gm/dl (10.1-14.3)
[2020-01-26] MEDS ORDERED: ONDANSETRON 4 MG/2 ML INJ IV PRN (07:10)
[2020-01-26] MEDS ORDERED: HYDROmorphone 1 MG/1 ML INJ IV PRN (07:10)
[2020-01-26] MEDS ORDERED: ACETAMINOPHEN 500 MG TAB PO NR (07:11)
--- NOTE | 2020-01-26 07:18 | Anesthesia Day of Surgery ---
Anesthesia Day of Surgery - Day of Surgery Patient Examined: Yes Patient H&P Reviewed: Yes Patient is NPO: Yes
--- NOTE | 2020-01-26 07:20 | Anesthesia Consultation ---
Anesthesia Consult and Med Hx Date of service: 01/26/20 - Airway Anesthetic Teeth Evaluation: Good, Crowns ROM Head & Neck: Adequate Mental/Hyoid Distance: Adequate Mallampati Class: Class I Intubation Access Assessment: Good - Pre-Operative Health Status ASA Pre-Surgery Classification: ASA2 Proposed Anesthetic Plan: General - Cardiovascular System Hx Hypertension: No (States she can climb two flights of stairs) Hx Cardia Arrhythmia: Yes (States negative w/u. Last ECHO 2 y ago) - Central Nervous System Hx Psychiatric Problems: No - Gastrointestinal Hx Gastroesophageal Reflux Disease: Yes - Hematic Hx Sickle Cell Disease: Yes (Trait only) - Other Systems Hx Alcohol Use: Yes (Occas) Hx Cancer: No
[2020-01-26] MEDS ORDERED: LIDOCAINE MPF (2%) 20 MG/1 ML VIAL 5 ML ONE (07:22)
[2020-01-26] MEDS ORDERED: propofoL 200 MG/20 ML VIAL IV ONE (07:22)
[2020-01-26] MEDS ORDERED: LACTATED RINGERS 1,000 ML IV SCH (08:00)
[2020-01-26] MEDS ORDERED: GABAPENTIN 300 MG CAP PO NR (08:00)
[2020-01-26] MEDS ORDERED: MIDAZOLAM 2 MG/2 ML INJ IV NR (08:00)
[2020-01-26 08:07] VITALS: BP 135/86
[2020-01-26] MEDS ORDERED: SODIUM CHLORIDE IRRI 2000 ML 2,000 ML ONE (08:57)
== END 2020-01-26 05:51 | disposition home or self-care (01) ==
LOC: OR 05:50
PROVIDERS: ATTEND Obstetrics & Gynecology
DX: N94.89 Other specified conditions associated with female genital organs and menstrual cycle (principal); R10.2 Pelvic and perineal pain; Z53.8 Procedure and treatment not carried out for other reasons; Z88.2 Allergy status to sulfonamides; Z79.899 Other long term (current) drug therapy; Z98.890 Other specified postprocedural states; N83.8 Other noninflammatory disorders of ovary, fallopian tube and broad ligament; H40.9 Unspecified glaucoma; G43.909 Migraine, unspecified, not intractable, without status migrainosus; E78.00 Pure hypercholesterolemia, unspecified; I10 Essential (primary) hypertension; K21.9 Gastro-esophageal reflux disease without esophagitis; Z90.710 Acquired absence of both cervix and uterus; Z72.89 Other problems related to lifestyle; Z86.2 Personal history of diseases of the blood and blood-forming organs and certain disorders involving the immune mechanism
CPT/HCPCS: 36415; 85014; 85018; 86850; 86900; 86901; A4217; J1170; J7120; J0690; J2250; J2704

== ENCOUNTER 2020-12-06 08:16 | Outpatient (CLI) | payer OTHER ==
--- NOTE | 2020-12-06 09:25 | Ultrasound Report ---
ULTRASOUND BREAST LEFT COMPLETE, 12/06/2020 CLINICAL INFORMATION / INDICATION: [place] 10[place]. TECHNIQUE: Complete sonographic evaluation of all 4 quadrants and retroareolar region was performed. COMPARISON: 06/15/2020 FINDINGS: In the superior left breast there are scattered benign-appearing cysts. There is a benign-appearing l eft axillary lymph node. In the 7:00 position 3 cm from the nipple there is an 8 x 5 x 4 mm hypoechoic nodule. This appears si milar in size to the prior study. The important quality of the outside images is not ideal. On today's study, the margins of the nodule mildly irregular. It does not shadow and does not have in creased vascularity. IMPRESSION: There is a persistent nodule in the 7:00 position of the left breast. It is hypoechoic bu t does not appear to be a simple cyst. The margin is mildly irregular. This is mildly suspicious and ultrasound-guided biopsy is recommended. Follow up recommendation: Biopsy BI-RADS Category 4: Suspicious for Malignancy. A normal or "negative" report should not preclude biopsy or follow-up of a clinically suspicious find ing. Signer Name: Davidson Quinonez MD Signed: 12/06/2020 9:21 AM Workstation Name: [id number]
== END 2020-12-06 08:17 | disposition home or self-care (01) ==
LOC: SPVWC 08:16
PROVIDERS: ATTEND Surgery
DX: N63.24 Unspecified lump in the left breast, lower inner quadrant (principal); R92.8 Other abnormal and inconclusive findings on diagnostic imaging of breast

== ENCOUNTER 2020-12-21 14:33 | Outpatient (CLI) | payer OTHER ==
--- NOTE | 2020-12-21 15:40 | Ultrasound Report ---
ULTRASOUND GUIDED LEFT BREAST ASPIRATION, 11/04/2009 CLINICAL INFORMATION / INDICATION: ABNORMAL MAMMO R92.8. Patient presented for ultrasound-guided aspi ration versus biopsy of a left breast lesion. COMPARISON: Left breast ultrasound 12/06/2020 PROCEDURE: Risks, benefits, and indications to the procedure were discussed with the patient in detail, includin g bleeding, infection, hematoma formation, and inadequate tissue sampling. The patient agreed to proc eed with both verbal and written consent. A timeout procedure was performed with two patient identifi ers. The breast was prepped and draped in the usual sterile fashion. Lidocaine 1% without epinephrine were used for local anesthesia. Under direct ultrasound guidance, an 18-gauge needle was advanced into th e previously described nodule in the left breast 7:00 position located 3 cm from the nipple. The lesi on aspirated to completion and resolved, compatible with a benign simple cyst. Less than 1 mL serosan guineous fluid was aspirated and discarded.. The needle was removed and hemostasis achieved with manu al pressure. A sterile dressing was applied to the skin. The patient tolerated the procedure without difficulty. No complications were encountered. Postbiopsy instructions were discussed with the patient and given in writing. IMPRESSION: 1. Technically successful ultrasound guided left breast aspiration. The previously described 7:00 nod ule aspirated completely and resolved, compatible with a benign simple cyst. Return to routine screen ing mammogram schedule is recommended. Signer Name: Catie Black MD Signed: 12/21/2020 3:36 PM Workstation Name: [id number]
== END 2020-12-21 14:34 | disposition home or self-care (01) ==
LOC: SPVWC 14:33
PROVIDERS: ATTEND Surgery
DX: N60.02 Solitary cyst of left breast (principal); R92.8 Other abnormal and inconclusive findings on diagnostic imaging of breast; H40.9 Unspecified glaucoma; G43.909 Migraine, unspecified, not intractable, without status migrainosus; I42.9 Cardiomyopathy, unspecified; I10 Essential (primary) hypertension; K21.9 Gastro-esophageal reflux disease without esophagitis; Z90.710 Acquired absence of both cervix and uterus; Z79.899 Other long term (current) drug therapy; Z88.2 Allergy status to sulfonamides; Z98.890 Other specified postprocedural states; Z72.89 Other problems related to lifestyle
CPT/HCPCS: 76942

== ENCOUNTER 2021-06-08 09:13 | Outpatient (CLI) | payer OTHER ==
--- NOTE | 2021-06-08 15:49 | Mammography Report ---
Please see report from screening mammogram. Signer Name: Riki Fregoso DO Signed: 06/08/2021 3:39 PM Workstation Name: [id number]
--- NOTE | 2021-06-08 15:49 | Mammography Report ---
DIGITAL SCREENING MAMMOGRAM WITH TOMOSYNTHESIS WITH CAD, 06/08/2021 CLINICAL INFORMATION / INDICATION: Routine Screening Mammography. TECHNIQUE: Digital bilateral 2D and 3D mammography with tomosynthesis was obtained in the craniocaud al and mediolateral oblique projections. Computer-Aided Detection (CAD) analysis was used for interp retation of this study. COMPARISON: 06/15/2020, 06/06/2020, 06/08/2019 FINDINGS: Breast Density: The breasts are heterogeneously dense, which may obscure small masses. No dominant mass, suspicious calcifications, or architectural distortion in either breast. IMPRESSION: No mammographic evidence of malignancy. Follow up recommendation: Routine yearly BI-RADS Category 1: Negative. A "normal" or negative report should not discourage follow up or biopsy of a clinically significant f inding. A written summary of these findings will be mailed to the patient. The patient will be entered into a mammography reporting system which will generate a reminder letter for the patient's next appointmen t at the appropriate interval. The [employer] recommends yearly mammograms starting at age 40 and continuing as l marcelino as a woman is in good health. Breast MRI is recommended for women with an approximate 20-25% or greater lifetime risk of breast cancer, including women with a strong family history of breast or ova sangita cancer or who have been treated for Hodgkin's disease. Signer Name: Riki Fregoso DO Signed: 06/08/2021 3:38 PM Workstation Name: [id number]
== END 2021-06-08 09:14 | disposition home or self-care (01) ==
LOC: SPVWC 09:13
PROVIDERS: ATTEND Surgery
DX: Z12.31 Encounter for screening mammogram for malignant neoplasm of breast (principal); N64.89 Other specified disorders of breast
CPT/HCPCS: 77063; 77067